=== PATIENT | male | born 1935 | race Two or more races ===

== ENCOUNTER 2017-12-25 08:33 | Outpatient (CLI) | payer OTHER | END 2017-12-25 08:39 | disposition home or self-care (01) | LOC: SONOGRAMA 08:33 → MAMO-SONO 09:45 | DX: M65.841 Other synovitis and tenosynovitis, right hand (principal); M65.842 Other synovitis and tenosynovitis, left hand; M05.59 Rheumatoid polyneuropathy with rheumatoid arthritis of multiple sites ==

== ENCOUNTER → 2018-01-08 | Outpatient (CLI) | payer OTHER | END | disposition home or self-care (01) | LOC: NUCLEAR 14:00 | DX: M81.0 Age-related osteoporosis without current pathological fracture (principal) ==

== ENCOUNTER 2019-07-28 09:40 | Outpatient (CLI) | payer OTHER | END 2019-07-28 09:50 | disposition home or self-care (01) | LOC: NUCLEAR 09:40 | DX: C61 Malignant neoplasm of prostate (principal) | CPT/HCPCS: 78320; A9503 ==

== ENCOUNTER → 2024-06-06 09:34 | Outpatient (CLI) | payer OTHER | END | disposition home or self-care (01) | LOC: NUCLEAR 09:00 | PROVIDERS: ATTEND Internal Medicine Cardiovascular Disease | DX: G45.9 Transient cerebral ischemic attack, unspecified (principal) ==

== ENCOUNTER 2024-06-13 08:09 | Outpatient (CLI) | payer OTHER | END 2024-06-13 08:10 | disposition home or self-care (01) | LOC: NUCLEAR 08:09 | DX: R60.0 Localized edema (principal) ==